=== PATIENT | female | born 1950 | race Caucasian/White ===

== ENCOUNTER 2017-07-03 17:00 | Emergency (ER) | payer OTHER, MEDICAID ==
[~2017-07-03] VITALS: Ht 162.6 cm; Wt 66.0 kg
[~2017-07-03 17:00] MED LIST: ASPI-1160
[2017-07-03] MEDS ORDERED: TRAMADOL 50MG TABLET PO ONE (17:30)
[2017-07-03] MEDS ORDERED: KETOROLAC 60MG/2ML VIAL IM ONE (19:00)
[2017-07-03 20:07] VITALS: BP 157/79
== END 2017-07-03 20:28 | disposition home or self-care (01) ==
LOC: ER 17:26
DX: S09.8XXA Other specified injuries of head, initial encounter (principal); S13.4XXA Sprain of ligaments of cervical spine, initial encounter; W19.XXXA Unspecified fall, initial encounter; I10 Essential (primary) hypertension; E78.00 Pure hypercholesterolemia, unspecified; M47.892 Other spondylosis, cervical region; Z79.82 Long term (current) use of aspirin; Z90.49 Acquired absence of other specified parts of digestive tract; Z90.710 Acquired absence of both cervix and uterus
CPT/HCPCS: 70450; 72125; 96372; 99284; J1885